=== PATIENT | female | born 1950 | race Two or more races ===

== ENCOUNTER 2024-02-25 06:13 | Inpatient (IN) | payer MEDICARE ==
[2024-02-21 12:44] LABS: Basophils # (auto) 0 10 ^3/uL (0-0.2); Basophils % (auto) 0.4 % (0.0-2.0); Eosinophils # (auto) 0.1 10 ^3/uL (0-0.8); Eosinophils % (auto) 1.7 % (0.0-7.0); Hematocrit 45.7 % (36.0-46.0); Hemoglobin 15.3 g/dL (12.2-16.2); Lymphocytes # (auto) 1.9 10 ^3/uL (0.4-5.4); Lymphocytes % (auto) 28.5 % (10.0-50.0); Mean Corpuscular Hgb Conc. 33.6 g/dL (32.0-36.0); Mean Corpuscular Volume 98.2 fL (80.0-100.0); Monocytes # (auto) 0.6 10 ^3/uL (0-1.3); Monocytes % (auto) 8.2 % (0.0-12.0); Neutrophils # (auto) 4.1 10 ^3/uL (1.6-8.6); Neutrophils % (auto) 61.2 % (37.0-80.0); Red Blood Cells 4.65 10^6/uL (4.0-5.20); Red Cell Distribution Width 14.1 % (11.8-14.3); White Blood Cell 6.7 10^3/uL (4.4-10.8)
[2024-02-21 13:06] LABS: INR 0.97 (0.9-1.15); Prothrombin Time 10.3 sec (9.3-11.8)
[2024-02-21 13:11] LABS: Alanine Aminotransferase 25 U/L (7-40); Albumin 4.7 g/dL (3.2-4.8); Alkaline Phosphatase 108 U/L (46-116); Anion Gap 2 (5-15); Aspartate Aminotransferase 15 U/L (13-40); BUN/Creatinine Ratio 16.3 (10.0-20.0); Bilirubin, Total 0.3 mg/dL (0.2-1.0); Blood Urea Nitrogen 13 mg/dL (9-23); Calcium 11.1 mg/dL (8.5-10.1); Carbon Dioxide 27 mmol/L (20-30); Chloride 112 mmol/L (98-107); Glucose 106 mg/dL (74-106); Potassium 4.2 mmol/L (3.5-5.1); Sodium 141 mmol/L (136-145)
[2024-02-21 13:35] LABS: Urine Bacteria FEW /hpf (None Seen); Urine Blood Negative /uL (Negative); Urine Clarity Clear (Clear); Urine Color Colorless (Yellow); Urine Protein, UAD Negative (Negative); Urine Specific Gravity 1.009 (1.001-1.035); Urine Urobilinogen Normal (Negative); Urine WBC 1 /hpf (0 - 5)
[2024-02-25] VITALS (17 sets, daily range): BP systolic 102–136; BP diastolic 61–74; PULSE 61–91; RESP 15–17; TEMP 97.9–98.6; O2SAT 93–100
[~2024-02-25] VITALS: Ht 144.8 cm; Wt 58.1 kg
[2024-02-25] MEDS: ceFAZolin 2 GM/D5W50ml 50 ML IV ONE (06:38)
[2024-02-25] MEDS: VANCOMYCIN HCL 1000 MG VL ONE (06:45)
[2024-02-25] MEDS: TRANEXAMIC ACID 20 ML ONE (06:50)
[2024-02-25] MEDS: BUPIVACAINE 0.5% P/F INJ 10 ML VIAL ONE (06:55)
[2024-02-25] MEDS: TETRACAINE 1% INJ 2 ML VIAL IJ ONE (06:56)
[2024-02-25] MEDS: SUCCINYLCHOLINE CHLORIDE 20 MG/ML 10ML VIAL IV ONE (06:56)
[2024-02-25] MEDS: ACETAMINOPHEN IV 100 ML IV ONE (07:02)
[2024-02-25] MEDS: CELECOXIB 100 MG CAP PO ONE (07:10)
[2024-02-25] MEDS: ACETAMINOPHEN IV 1000 MG/100ML (10MG/ML) IV ONE (07:10)
[2024-02-25] MEDS: PREGABALIN CAPSULE 75 MG CAP PO ONE (07:10)
[2024-02-25] MEDS ORDERED: KETAMINE 50mg/ML 1ml syringe ONE (07:14)
[2024-02-25] MEDS ORDERED: fentaNYL CITRATE 100 MCG/2 ML VL ONE (07:14)
[2024-02-25] MEDS ORDERED: MIDAZOLAM HCL 2MG/2ML 2ml VIAL (1mg/ml) ONE (07:14)
[2024-02-25] MEDS ORDERED: SODIUM CHLORIDE LOCK 10 ML ONE (07:14)
[2024-02-25] MEDS ORDERED: ONDANSETRON HCL 4 MG/2 ML VIAL ONE (07:14)
[2024-02-25] MEDS ORDERED: PROPOFOL 10 MG/ML 20 ML IV ONE (07:14)
[2024-02-25] MEDS ORDERED: MORPHINE SULF PF 5 MG/10 ML VIAL ONE (07:14)
[2024-02-25] MEDS: BUPIVACAINE HCL 0.25% P/F 10 ML VIAL ONE (08:48)
[2024-02-25] MEDS: MORPHINE SULF PF 5 MG/10 ML VIAL ONE (08:48)
[2024-02-25] MEDS: KETOROLAC TROMETH 30 MG/ML 1ML VIAL ONE (08:48)
[2024-02-25] MEDS ORDERED: HYDROmorphone HCL 2 MG/ML VL/or syr IV PRN ×4 (09:15→13:30)
[2024-02-25] MEDS ORDERED: ceFAZolin 1GM/50ML 50 ML IV SCH (09:15)
[2024-02-25] MEDS ORDERED: NITROGLYCERIN 0.4 MG SL TAB SL PRN (09:15)
[2024-02-25] MEDS ORDERED: ONDANSETRON HCL 4 MG/2 ML VIAL IV PRN (09:15)
[2024-02-25] MEDS ORDERED: MORPHINE SULFATE INJ 2 MG/ml SYRG IV PRN ×2 (09:15→09:30)
[2024-02-25] MEDS: METOCLOPRAMIDE HCL 5MG/ml INJ 2ml VIAL IV ONE (09:30)
[2024-02-25] MEDS ORDERED: fentaNYL CITRATE 100 MCG/2 ML VL IV PRN (09:30)
[2024-02-25] MEDS ORDERED: NALOXONE HCL 0.4 MG/ML VIAL IV PRN (09:30)
[2024-02-25] MEDS: ENOXAPARIN SOD 40 MG/0.4 ML SYRINGE SC SCH (13:46)
[2024-02-25] MEDS: DOCUSATE SOD 100 MG CAP PO SCH (13:46)
[2024-02-25] MEDS: NICOTINE 14 MG/24HR TOPICAL PATCH TD ONE (13:55)
[2024-02-25] MEDS: ceFAZolin 1GM/50ML 50 ML IV SCH (13:55)
[2024-02-25] MEDS: LACTATED RINGER'S 1,000 ML IV SCH (14:06)
[2024-02-26] VITALS (16 sets, daily range): BP systolic 100–124; BP diastolic 49–76; PULSE 78–96; RESP 15–18; TEMP 97.8–99.6; O2SAT 95–98
[2024-02-26 05:58] LABS: Basophils # (auto) 0 10 ^3/uL (0-0.2); Basophils % (auto) 0.1 % (0.0-2.0); Eosinophils # (auto) 0.1 10 ^3/uL (0-0.8); Eosinophils % (auto) 0.7 % (0.0-7.0); Lymphocytes # (auto) 1.2 10 ^3/uL (0.4-5.4); Mean Corpuscular Hemoglobin 32.8 pg (28.0-32.0); Mean Corpuscular Hgb Conc. 33.5 g/dL (32.0-36.0); Monocytes # (auto) 0.9 10 ^3/uL (0-1.3); Monocytes % (auto) 11.3 % (0.0-12.0); Neutrophils # (auto) 5.4 10 ^3/uL (1.6-8.6); Neutrophils % (auto) 71.9 % (37.0-80.0); Red Blood Cells 3.36 10^6/uL (4.0-5.20); Red Cell Distribution Width 13.4 % (11.8-14.3); White Blood Cell 7.5 10^3/uL (4.4-10.8)
[2024-02-26 06:13] LABS: Alanine Aminotransferase 19 U/L (7-40); Albumin 3.2 g/dL (3.2-4.8); Alkaline Phosphatase 74 U/L (46-116); Anion Gap 0 (5-15); Aspartate Aminotransferase 29 U/L (13-40); BUN/Creatinine Ratio 21.2 (10.0-20.0); Blood Urea Nitrogen 11 mg/dL (9-23); Calcium 9.5 mg/dL (8.5-10.1); Carbon Dioxide 26 mmol/L (20-30); Chloride 111 mmol/L (98-107); Glucose 108 mg/dL (74-106); Potassium 4.2 mmol/L (3.5-5.1); Sodium 137 mmol/L (136-145)
[2024-02-26 06:14] LABS: Bilirubin, Total 0.3 mg/dL (0.2-1.0); Total Protein 4.8 g/dL (5.7-8.2)
[2024-02-26] MEDS: NICOTINE 14 MG/24HR TOPICAL PATCH TD SCH (09:30)
[2024-02-26] MEDS: levoFLOXacin 500MG 100 ML IV SCH (09:33)
[2024-02-26] MEDS: HYDROcodone-ACET 5/325MG TAB PO PRN (09:49)
[2024-02-26] MEDS: HYDROmorphone HCL 2 MG/ML VL/or syr IV PRN (16:05)
[2024-02-26] MEDS: diphenhdrAMINE HCL 50 MG/1 ML VL IV PRN (22:23)
[2024-02-27 01:00] VITALS: BP 127/68; PULSE 90; RESP 17; TEMP 97.8; O2SAT 95
[2024-02-27 05:00] VITALS: BP 123/61; PULSE 90; RESP 16; TEMP 98; O2SAT 92
[2024-02-27 06:32] LABS: Anion Gap 4 (5-15); Carbon Dioxide 25 mmol/L (20-30); Chloride 106 mmol/L (98-107); Potassium 3.4 mmol/L (3.5-5.1); Sodium 135 mmol/L (136-145)
[2024-02-27 06:33] LABS: Calcium 10.3 mg/dL (8.5-10.1)
[2024-02-27 06:34] LABS: Basophils # (auto) 0 10 ^3/uL (0-0.2); Basophils % (auto) 0.1 % (0.0-2.0); Eosinophils # (auto) 0 10 ^3/uL (0-0.8); Eosinophils % (auto) 0.3 % (0.0-7.0); Hematocrit 32.7 % (36.0-46.0); Lymphocytes % (auto) 11.6 % (10.0-50.0); Mean Corpuscular Hemoglobin 32.9 pg (28.0-32.0); Mean Corpuscular Hgb Conc. 33.6 g/dL (32.0-36.0); Monocytes # (auto) 0.8 10 ^3/uL (0-1.3); Red Blood Cells 3.34 10^6/uL (4.0-5.20); Red Cell Distribution Width 13.3 % (11.8-14.3); White Blood Cell 8.9 10^3/uL (4.4-10.8)
[2024-02-27 06:38] LABS: Blood Urea Nitrogen 6 mg/dL (9-23); Glucose 116 mg/dL (74-106)
[2024-02-27 08:15] VITALS: PULSE 89
[2024-02-27 13:12] VITALS: BP 140/70; PULSE 100; RESP 20; TEMP 98.2; O2SAT 91
== END 2024-02-27 17:50 | disposition home health service (06) | DRG 470 ==
LOC: SUR 06:13 → TELE 09:19 → TELE-WESTW 10:56
PROVIDERS: ADMIT Orthopaedic Surgery Adult Reconstructive Orthopaedic Surgery; ATTEND Internal Medicine
PROC: 0SR90JZ Replacement of Right Hip Joint with Synthetic Substitute, Open Approach (ICD-10-PCS; principal; 2024-02-25 07:25)
DX: M16.11 Unilateral primary osteoarthritis, right hip (principal); I95.2 Hypotension due to drugs; T40.605A Adverse effect of unspecified narcotics, initial encounter; Z72.0 Tobacco use; Y92.89 Other specified places as the place of occurrence of the external cause
CPT/HCPCS: 36415; 72170; 73502; 80048; 80053; 81001; 85025; 85610; 85730; 86850; 86900; 86901; 97110; 97116; 97163; 97530; A4565; G0378; J0131; J0330; J1885; J1956; J2250; J2405; J2704; J3490